=== PATIENT | male | born 1995 | race African-American/Black ===

== ENCOUNTER 2017-02-28 23:15 | Emergency (ER) | payer MEDICAID, OTHER ==
[~2017-02-28] VITALS: Ht 170.2 cm; Wt 62.5 kg
[2017-02-28 23:18] VITALS: BP 114/64; PULSE 71; RESP 16; TEMP 97.8; O2SAT 99
[2017-03-01] MEDS ORDERED: PRED20 PO ×2 (00:06→00:09)
--- NOTE | 2017-03-01 00:14 | PD ---
HPI Chief Complaint: Bite or Sting Time Seen by Provider: 00:09 Travel History International Travel<30 days: No Contact w/Intl Traveler<30days: No Traveled to known affect area: No History of Present Illness HPI 21-year-old black male presents emergency department for evaluation of a insect bite to his right forearm which occurred earlier this afternoon. 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 He states that he had sudden severe pain to the right forearm. Over. Several hours area has become increasing painful, red and swollen. He denies any fever chills. No difficulty swallowing. No shortness of breath or wheezing. Up-to-date with immunizations. Pain is moderate. No alleviating factor. PFSH Past Medical History Medical History: Denies Significant Hx Immunizations Current: Yes Tetanus Vaccination: < 5 Years Influenza Vaccination: No Past Surgical History Surgical History: No Previous Surgery Social History Alcohol Use: No Tobacco Use: No Substance Use: No Allergies-Medications (Allergen,Severity, Reaction): Coded Allergies: No Known Allergies (Unverified , 02/28/17) Reported Meds & Prescriptions Reported Meds & Active Scripts Active Prednisone 20 Mg Tab 20 Mg PO BID 5 Days Review of Systems Except as stated in HPI: all other systems reviewed are Neg Physical Exam Narrative GENERAL: This is a well-nourished, well-developed patient, in no apparent distress. SKIN: No rashes, ecchymoses or lesions. Warm and dry. HEAD: Atraumatic. Normocephalic. EYES: PERRL, EOMI, no discharge or injection. No scleral icterus. EARS: Clear NOSE: Nasal turbinates appear normal. THROAT: Mucosa pink and moist. Airway patent. NECK: Trachea midline. supple, moves head freely. LUNGS: Clear to auscultation. CV: Regular in rhythm. ABDOMEN: Soft nontender. EXT: Examination of right upper extremity reveals swelling, warmth and tenderness to the proximal lateral aspect of the forearm. There is no fluctuance or pointing. There is no pain in the hand, wrist, elbow. He moves his arm freely. Intact median/ulnar/renal nerves. Data Data Last Documented VS Vital Signs Date Time Temp Pulse Resp B/P (MAP) Pulse Ox O2 Delivery O2 Flow Rate FiO2 02/28/17 23:18 97.8 71 16 114/64 (81) 99 Room Air Orders Orders Diphenhydramine (Benadryl) (03/01/17 00:15) Prednisone (Deltasone) (03/01/17 00:15) MDM Medical Decision Making Medical Screen Exam Complete: Yes Emergency Medical Condition: Yes Medical Record Reviewed: Yes Differential Diagnosis MDM: High Differential diagnoses: Abscess, folliculitis, cellulitis, lymphangitis, abrasion, contact dermatitis, insect bite local reaction Narrative Course This is insect bite with local reaction. Patient's given prednisone 60 mg and Benadryl 50 g by mouth. Diagnosis Primary Impression: Insect bite of right forearm with local reaction Qualified Codes: S50.861A - Insect bite (nonvenomous) of right forearm, initial encounter; W57.XXXA - Bitten or stung by nonvenomous insect and other nonvenomous arthropods, initial encounter Patient Instructions: General Instructions Departure Forms: Tests/Procedures, Work Release Special Instructions: No work 03/01/17 Additional Instructions: Rest. Elevation. Ice. 3 Advil every 6 hours as needed for pain. 50 g of Benadryl every 4-6 hours. Prednisone. Follow-up with medical doctor next 2-3 days. Return to the ER for problems. Med/Other Pt SpecificInfo: Prescription(s) given Scripts Prednisone (Prednisone) 20 Mg Tab 20 MG PO BID for 5 Days, #10 TAB 0 Refills Prov: Shalini Sawyer 03/01/17 Idris Jaime Mar 01, 2017 00:14
[2017-03-01] MEDS ORDERED: predniSONE 20 MG TAB PO ONE (00:15)
[2017-03-01] MEDS ORDERED: diphenhydrAMINE HCL 50 MG CAP PO ONE (00:15)
== END 2017-03-01 00:34 | disposition home or self-care (01) ==
LOC: NETRI 23:15 → EDTENT 03-01 00:34
DX: S50.861A Insect bite (nonvenomous) of right forearm, initial encounter (principal); W57.XXXA Bitten or stung by nonvenomous insect and other nonvenomous arthropods, initial encounter
CPT/HCPCS: 99283; J7512; Q0163